=== PATIENT | female | born 1970 | race Caucasian/White ===

== ENCOUNTER 2022-07-26 21:45 | Emergency (ER) | payer OTHER, SELFPAY ==
[2022-07-26 21:46] VITALS: BP 124/73; PULSE 111; RESP 18; TEMP 37.2; O2SAT 95; BMI 25.0
--- NOTE | 2022-07-26 22:02 | EX.ED.DYSGE1 ---
HPI History of Present Illness Chief Complaint: Fever Informant: patient and spouse/S.O. Narrative Narrative: Presents reporting fever this evening at 5 PM Tmax 103.3 orally. Aspirin taken around 7:00. Patient reporting productive cough over the past week. This evening mild headache mild chills. No urinary symptoms. No vomiting or diarrhea. Denies myalgias. COVID infection 2 years ago. Spouse recent had upper respiratory sinus symptoms that resolved. Patient with no past medical history. Takes multivitamins daily. PFSH PFSH Medical History no medical history Home Medications cefdinir 300 mg capsule 300 mg PO BID #13 caps 07/26/22 [Rx Last Taken Unknown] Allergy/AdvReac Type Severity Reaction Status Date / Time No Known Allergies Allergy Verified 07/26/22 21:48 Social History Smoking Status: Never smoker ROS ROS ED Constitutional Constitutional ED: Reports chills and fever(s); Denies sweats Eyes Eyes: Denies change in vision ENT ENT ED: Denies dysphagia or sore throat Cardiovascular Cardiovascular: Denies chest pain, leg edema, palpitations or racing heartbeat Respiratory/Chest Respiratory/Chest: Reports cough; Denies dyspnea or dyspnea on exertion Gastrointestinal Gastrointestinal: Denies abdominal pain, diarrhea, nausea or vomiting Genitourinary Genitourinary ED: Denies dysuria, hematuria or urinary frequency Musculoskeletal Musculoskeletal: Denies back pain, extremity pain or neck pain Integumentary Denies rash or wounds Neurologic Neurologic: Reports headache(s); Denies paresthesias or weakness EXAM Physical Exam Const Vital Signs: 07/26/22 21:46 07/26/22 21:54 07/26/22 23:28 Temperature 99.0 F Temperature Source Temporal Pulse Rate 111 H 92 Respiratory Rate 18 18 Respiratory Effort Normal Non-Labored Respiratory Pattern Normal Blood Pressure 124/73 H Blood Pressure Mean 90 Pulse Ox 95 96 Oxygen Delivery Method Room Air Positive well nourished and well developed General Appearance ED: well developed and NAD HEENT Reports moist mucous membranes normocephalic and atraumatic Eyes PERRL, EOMs intact bilaterally and conjunctivae normal General Eye ED: Yes normal appearance of both eyes Neck no lymphadenopathy and supple Neck Narrative: No meningismus General: Negative for tenderness Chest Wall Chest: Negative for tenderness Resp normal respiratory effort and normal air movement Effort and Inspection: symmetric chest movement; Negative for respiratory distress Cardio regular rhythm and no murmurs Rate: tachycardic Peripheral Pulses: pulses 2+ throughout GI normal to inspection, nondistended, normoactive bowel sounds and non-tender Palpation: Negative for guarding or rebound tenderness present Back/Spine no CVA tenderness and no thoracic nor lumbar tenderness Extremity normal to inspection General Extremety ED: Negative for edema or tenderness General Extremity: Negative for edema Neuro oriented x3, CN's II-XII intact bilaterally and no sensory deficits noted Sensorium / Orientation: awake and alert Skin no rashes or lesions noted and no wounds MDM MDM MDM Narrative Medical decision making narrative: Interventions / MDM: Differential diagnosis:Pneumonia, COVID, influenza, viral syndrome Diagnosis considered but do not suspect: N/A My EKG interpretation: N/A Imaging independently reviewed and interpreted by myself: 2 view chest x-ray: Left lower lobe infiltrate External documents reviewed: N/A Test considered but not ordered:N/A ED course: Patient elevated temp at 99 nontoxic no respiratory distress. COVID and flu negative. Chest x-ray with left lower lobe infiltrate. Patient started on Omnicef. Heart rate initially 111 on arrival down to 92. Prescription for antibiotics return precautions. All questions were answered. Re-evaluation: stable Disposition discussed with patient/family/significant other: Patient and significant other Case discussed with consulting clinician: N/A Radiography Diagnostic Testing: Clinical Impression(s) from Imaging Studies Chest X-Ray 07/26/22 22:35 IMPRESSION: Lower lung infiltrates. Electronically Signed: Patrice Gerard MD at 23:34 EDT , Discharge Plan Triage Chief Complaint: Fever ED Provider: Aldair Pearson Dx/Rx/DC Orders Clinical Impression: Pneumonia, Cough, Fever Instructions: ED Pneumonia (Adult) Prescriptions: New cefdinir 300 mg capsule 300 mg PO BID Qty: 13 0RF Primary Care Provider: Care Physician,No Primary Referrals: NOT,DEFINED [Non-Staff] - Activity Restrictions/Additional Instructions: X-ray with left lower lobe pneumonia. COVID and flu negative. Use Tylenol or Motrin as needed for fevers continue oral fluids. Take and finish your antibiotic. Return if any worsening symptoms. Disposition Disposition: Home, Self Care Discharge Date/Time: 07/26/22 23:30
--- NOTE | 2022-07-26 22:35 | RAD_ITS ---
RAD/Chest PA and Lateral IMPRESSION: Lower lung infiltrates. Electronically Signed: Patrice Gearrd MD at 23:34 EDT ,
[2022-07-26 23:28] VITALS: PULSE 92; RESP 18; O2SAT 96
[2022-07-26] MEDS: Cefdinir 300 MG Capsule PO (23:28)
== END 2022-07-26 23:30 | disposition home or self-care (01) ==
PROVIDERS: Emergency Provider Emergency Medicine; Visit Provider Emergency Medicine
DX: J18.9 Pneumonia, unspecified organism (principal); R05.9 Cough, unspecified; R50.9 Fever, unspecified; Z86.16 Personal history of COVID-19
CPT/HCPCS: 71046; 87428; 99283